=== PATIENT | female | born 1980 | race Caucasian/White ===

== ENCOUNTER 2017-05-02 16:24 | Emergency (ER) | payer OTHER ==
[~2017-05-02] VITALS: Ht 162.6 cm; Wt 52.0 kg
[~2017-05-02 16:24] MED LIST: ALBU6.7H INH; PROM6.257 PO; Z.0.NO CURRENT MEDS; ZITH250T PO
[2017-05-02 16:30] VITALS: BP 130/84; PULSE 95; RESP 16; TEMP 98.3; O2SAT 95
[2017-05-02] MEDS ORDERED: HYDR-3516 PO (17:47)
--- NOTE | 2017-05-02 17:58 | PD ---
HPI Chief Complaint: Psychiatric Symptoms Time Seen by Provider: 17:43 Travel History International Travel<30 days: No Contact w/Intl Traveler<30days: No Traveled to known affect area: No History of Present Illness HPI 36-year-old female was Aguayo acted and brought in for psychiatric evaluation. Patient was texting to her ex- and ex-boyfriend something in the context of insinuating to end it all. Aguayo act paperwork states that an empty gun case was found at the residence. Patient denies existence of a gun. Patient denies any suicidal or homicidal ideation now. Patient denies any headache. Patient denies any chest pain or shortness of breath. Patient denies abdominal pain. Patient denies any fever chills. Patient has history chronic neck pain and has been taking hydrocodone and ibuprofen as needed for pain. Patient denies any medical problems. Patient denies any illicit drugs alcohol abuse. PFSH Past Medical History Diminished Hearing: No Kidney Stones: Yes : 2 Para: 1 Miscarriage: 0 : 1 Tubal Ligation: Yes Past Surgical History Section: Yes (x1) Other Surgery: Yes (breast aug) Social History Alcohol Use: Yes (OCC) Tobacco Use: Yes (OCC) Substance Use: No Allergies-Medications (Allergen,Severity, Reaction): Coded Allergies: No Known Allergies (Verified Adverse Reaction, Unknown, 05/02/17) Reported Meds & Prescriptions Reported Meds & Active Scripts Active Reported Hydrocodone-Acetaminophen 5-325 mg Tab 1 Tab PO Q4H PRN Review of Systems General / Constitutional: No: Fever Eyes: No: Visual changes HENT: No: Headaches Cardiovascular: No: Chest Pain or Discomfort Respiratory: No: Shortness of Breath Gastrointestinal: No: Abdominal Pain Genitourinary: No: Dysuria Musculoskeletal: No: Pain Skin: No Rash Neurologic: No: Weakness Psychiatric: No: Depression Endocrine: No: Polydipsia Hematologic/Lymphatic: No: Easy Bruising Physical Exam Narrative GENERAL: Well-nourished, well-developed patient. SKIN: Focused skin assessment warm/dry. HEAD: Normocephalic. EYES: No scleral icterus. No injection or drainage. NECK: Supple, trachea midline. No JVD or lymphadenopathy. CARDIOVASCULAR: Regular rate and rhythm without murmurs, gallops, or rubs. RESPIRATORY: Breath sounds equal bilaterally. No accessory muscle use. GASTROINTESTINAL: Abdomen soft, non-tender, nondistended. MUSCULOSKELETAL: No cyanosis, or edema. BACK: Nontender without obvious deformity. No CVA tenderness. Neurologic exam normal. Data Data Last Documented VS Vital Signs Date Time Temp Pulse Resp B/P (MAP) Pulse Ox O2 Delivery O2 Flow Rate FiO2 05/02/17 16:30 98.3 95 16 130/84 (99) 95 Orders Orders Complete Blood Count With Diff (05/02/17 16:39) Comprehensive Metabolic Panel (05/02/17 16:39) Thyroid Stimulating Hormone (05/02/17 16:39) Urinalysis - C+S If Indicated (05/02/17 16:39) Psych Screen (05/02/17 16:39) Drug Screen, Random Urine (05/02/17 16:39) Alcohol (Ethanol) (05/02/17 16:39) Ed Urine Pregnancytest Poc (05/02/17 17:53) Labs Laboratory Tests Test 05/02/17 18:27 White Blood Count 11.1 TH/MM3 Red Blood Count 4.72 MIL/MM3 Hemoglobin 14.3 GM/DL Hematocrit 42.7 % Mean Corpuscular Volume 90.4 FL Mean Corpuscular Hemoglobin 30.2 PG Mean Corpuscular Hemoglobin Concent 33.4 % Red Cell Distribution Width 13.4 % Platelet Count 197 TH/MM3 Mean Platelet Volume 9.0 FL Neutrophils (%) (Auto) 63.9 % Lymphocytes (%) (Auto) 30.3 % Monocytes (%) (Auto) 5.1 % Eosinophils (%) (Auto) 0.5 % Basophils (%) (Auto) 0.2 % Neutrophils # (Auto) 7.1 TH/MM3 Lymphocytes # (Auto) 3.4 TH/MM3 Monocytes # (Auto) 0.6 TH/MM3 Eosinophils # (Auto) 0.1 TH/MM3 Basophils # (Auto) 0.0 TH/MM3 CBC Comment DIFF FINAL Differential Comment Blood Urea Nitrogen 11 MG/DL Creatinine 0.75 MG/DL Random Glucose 96 MG/DL Total Protein 7.8 GM/DL Albumin 4.3 GM/DL Calcium Level 8.6 MG/DL Alkaline Phosphatase 52 U/L Aspartate Amino Transf (AST/SGOT) 23 U/L Alanine Aminotransferase (ALT/SGPT) 23 U/L Total Bilirubin 0.3 MG/DL Sodium Level 138 MEQ/L Potassium Level 3.9 MEQ/L Chloride Level 102 MEQ/L Carbon Dioxide Level 30.7 MEQ/L Anion Gap 5 MEQ/L Estimat Glomerular Filtration Rate 87 ML/MIN Thyroid Stimulating Hormone 3rd Gen 0.994 uIU/ML Ethyl Alcohol Level LESS THAN 3 MG/DL MDM Medical Decision Making Medical Screen Exam Complete: Yes Emergency Medical Condition: Yes Interpretation(s) 22:09 PM. CBC within normal limits. CMP within normal limits. TSH normal. Alcohol less than 3. Differential Diagnosis Differential diagnosis including adjustment disorder, depression, suicidal. Narrative Course 36-year-old female was Aguayo acted and brought in for psychiatric evaluation. 22:10 PM. Patient is medically cleared for psychiatric evaluation. Mason Desai MD May 02, 2017 17:58
[2017-05-02 19:00] LABS: AUTOMATED NEUTROPHIL # 7.1 TH/MM3 (1.8-7.7); BASOPHIL % 0.2 % (0.0-2.0); EOSINOPHIL # 0.1 TH/MM3 (0-0.4); EOSINOPHIL % 0.5 % (0.0-4.0); HEMATOCRIT 42.7 % (35.0-46.0); HEMOGLOBIN 14.3 GM/DL (11.6-15.3); LYMPH % 30.3 % (9.0-44.0); LYMPHOCYTE # 3.4 TH/MM3 (1.0-4.8); MEAN CELL VOLUME 90.4 FL (80.0-100.0); MEAN CORPUSCULAR HEMOGLOBIN 30.2 PG (27.0-34.0); MEAN CORPUSCULAR HGB CONC 33.4 % (32.0-36.0); MONO % 5.1 % (0.0-8.0); MONOCYTE # 0.6 TH/MM3 (0-0.9); NEUT % 63.9 % (16.0-70.0); PLATELET COUNT 197 TH/MM3 (150-450); RED BLOOD COUNT 4.72 MIL/MM3 (4.00-5.30); RED CELL DISTRIBUTION WIDTH 13.4 % (11.6-17.2); WHITE BLOOD COUNT 11.1 TH/MM3 (4.0-11.0)
[2017-05-02 19:22] LABS: ALBUMIN 4.3 GM/DL (3.4-5.0); ALT (GPT) 23 U/L (10-53); AST (GOT) 23 U/L (15-37); BICARBONATE 30.7 MEQ/L (21.0-32.0); BLOOD UREA NITROGEN 11 MG/DL (7-18); CALCIUM 8.6 MG/DL (8.5-10.1); CHLORIDE 102 MEQ/L (98-107); CREATININE 0.75 MG/DL (0.50-1.00); GLOMERULAR FILTRATION RATE 87 ML/MIN (>89); GLUCOSE,RANDOM 96 MG/DL (74-106); SODIUM (NA) 138 MEQ/L (136-145)
[2017-05-02 19:31] LABS: ALKALINE PHOSPHATASE 52 U/L (45-117); TOTAL BILIRUBIN ADULT 0.3 MG/DL (0.2-1.0); TOTAL PROTEIN 7.8 GM/DL (6.4-8.2)
[2017-05-03 00:43] VITALS: BP 112/66; PULSE 86; RESP 16; TEMP 99.3; O2SAT 100
[2017-05-03 01:37] LABS: BACTERIA, URINE MANY /hpf; BILIRUBIN, URINE NEG (NEG); BLOOD, URINE MOD (NEG); GLUCOSE,URINE NEG (NEG); KETONE, URINE NEG (NEG); MUCUS URINE FEW /lpf (OCC); NITRITE,URINE POS (NEG); SQUAMOUS EPITHELIAL CELL URINE 3 /hpf (0-5); URINE COLOR YELLOW (YELLW/STRAW); URINE LEUKOCYTE ESTERASE TRACE (NEG)
[2017-05-03] MEDS ORDERED: MACR100C2 PO (03:35)
--- NOTE | 2017-05-03 03:35 | PD ---
Data Data Last Documented VS Vital Signs Date Time Temp Pulse Resp B/P (MAP) Pulse Ox O2 Delivery O2 Flow Rate FiO2 05/03/17 00:43 99.3 86 16 112/66 (81) 100 Room Air Orders Orders Complete Blood Count With Diff (05/02/17 16:39) Comprehensive Metabolic Panel (05/02/17 16:39) Thyroid Stimulating Hormone (05/02/17 16:39) Urinalysis - C+S If Indicated (05/02/17 16:39) Psych Screen (05/02/17 16:39) Drug Screen, Random Urine (05/02/17 16:39) Alcohol (Ethanol) (05/02/17 16:39) Ed Urine Pregnancytest Poc (05/02/17 17:53) Urine Culture (05/03/17 01:00) Nitrofurantoin Monohyd Macrocr (Macrobid (05/03/17 03:45) Diet Regular Basic (05/03/17 Breakfast) Labs Laboratory Tests Test 05/02/17 18:27 05/03/17 01:00 White Blood Count 11.1 TH/MM3 Red Blood Count 4.72 MIL/MM3 Hemoglobin 14.3 GM/DL Hematocrit 42.7 % Mean Corpuscular Volume 90.4 FL Mean Corpuscular Hemoglobin 30.2 PG Mean Corpuscular Hemoglobin Concent 33.4 % Red Cell Distribution Width 13.4 % Platelet Count 197 TH/MM3 Mean Platelet Volume 9.0 FL Neutrophils (%) (Auto) 63.9 % Lymphocytes (%) (Auto) 30.3 % Monocytes (%) (Auto) 5.1 % Eosinophils (%) (Auto) 0.5 % Basophils (%) (Auto) 0.2 % Neutrophils # (Auto) 7.1 TH/MM3 Lymphocytes # (Auto) 3.4 TH/MM3 Monocytes # (Auto) 0.6 TH/MM3 Eosinophils # (Auto) 0.1 TH/MM3 Basophils # (Auto) 0.0 TH/MM3 CBC Comment DIFF FINAL Differential Comment Blood Urea Nitrogen 11 MG/DL Creatinine 0.75 MG/DL Random Glucose 96 MG/DL Total Protein 7.8 GM/DL Albumin 4.3 GM/DL Calcium Level 8.6 MG/DL Alkaline Phosphatase 52 U/L Aspartate Amino Transf (AST/SGOT) 23 U/L Alanine Aminotransferase (ALT/SGPT) 23 U/L Total Bilirubin 0.3 MG/DL Sodium Level 138 MEQ/L Potassium Level 3.9 MEQ/L Chloride Level 102 MEQ/L Carbon Dioxide Level 30.7 MEQ/L Anion Gap 5 MEQ/L Estimat Glomerular Filtration Rate 87 ML/MIN Thyroid Stimulating Hormone 3rd Gen 0.994 uIU/ML Ethyl Alcohol Level LESS THAN 3 MG/DL Urine Color YELLOW Urine Turbidity HAZY Urine pH 7.0 Urine Specific [place] 1.038 Urine Protein TRACE mg/dL Urine Glucose (UA) NEG mg/dL Urine Ketones NEG mg/dL Urine Occult Blood MOD Urine Nitrite POS Urine Bilirubin NEG Urine Urobilinogen LESS THAN 2.0 MG/DL Urine Leukocyte Esterase TRACE Urine RBC 28 /hpf Urine WBC 3 /hpf Urine Squamous Epithelial Cells 3 /hpf Urine Bacteria MANY /hpf Urine Mucus FEW /lpf Microscopic Urinalysis Comment CULTURE INDICATED Urine Opiates Screen POS Urine Barbiturates Screen NEG Urine Amphetamines Screen POS Urine Benzodiazepines Screen NEG Urine Cocaine Screen NEG Urine Cannabinoids Screen NEG MDM Medical Record Reviewed: Yes Supervised Visit with MATT: No Narrative Course Please see previous providers notes. I was asked to evaluate this patient's urinalysis results after she has been previously cleared by Dr. Desai. Urinalysis reveals positive nitrites, moderate blood, many bacteria, consistent with urinary tract infection. Pending culture results the patient will be started on Macrobid, first dose provided here, every 12, prescription for when she is eventually discharged. Diagnosis Primary Impression: Urinary tract infection Scripts Nitrofurantoin Monohydrate Macrocrystals (Macrobid) 100 Mg Capsule 100 MG PO BID for Infection for 7 Days, #14 CAP 0 Refills Prov: Mason Desai MD 05/03/17 Nghia Donald May 03, 2017 03:34
[2017-05-03] MEDS ORDERED: NITROFURANTOIN MONOHYD MACROCR 100 MG CAP PO SCH (03:45)
[2017-05-03 06:27] VITALS: BP 135/75; PULSE 71; RESP 18; TEMP 98.6; O2SAT 100
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
--- NOTE | 2017-05-03 16:23 | PD ---
Physical Exam Date Seen by Provider: May 03, 2017 Time Seen by Provider: 16:22 Data Data Last Documented VS Vital Signs Date Time Temp Pulse Resp B/P (MAP) Pulse Ox O2 Delivery O2 Flow Rate FiO2 05/03/17 06:27 98.6 71 18 135/75 (95) 100 Room Air Orders Orders Complete Blood Count With Diff (05/02/17 16:39) Comprehensive Metabolic Panel (05/02/17 16:39) Thyroid Stimulating Hormone (05/02/17 16:39) Urinalysis - C+S If Indicated (05/02/17 16:39) Psych Screen (05/02/17 16:39) Drug Screen, Random Urine (05/02/17 16:39) Alcohol (Ethanol) (05/02/17 16:39) Ed Urine Pregnancytest Poc (05/02/17 17:53) Urine Culture (05/03/17 01:00) Nitrofurantoin Monohyd Macrocr (Macrobid (05/03/17 03:45) Diet Regular Basic (05/03/17 Breakfast) Diet Regular Basic (05/03/17 Lunch) Ed Discharge Order (05/03/17 16:20) Labs Laboratory Tests Test 05/02/17 18:27 05/03/17 01:00 White Blood Count 11.1 TH/MM3 Red Blood Count 4.72 MIL/MM3 Hemoglobin 14.3 GM/DL Hematocrit 42.7 % Mean Corpuscular Volume 90.4 FL Mean Corpuscular Hemoglobin 30.2 PG Mean Corpuscular Hemoglobin Concent 33.4 % Red Cell Distribution Width 13.4 % Platelet Count 197 TH/MM3 Mean Platelet Volume 9.0 FL Neutrophils (%) (Auto) 63.9 % Lymphocytes (%) (Auto) 30.3 % Monocytes (%) (Auto) 5.1 % Eosinophils (%) (Auto) 0.5 % Basophils (%) (Auto) 0.2 % Neutrophils # (Auto) 7.1 TH/MM3 Lymphocytes # (Auto) 3.4 TH/MM3 Monocytes # (Auto) 0.6 TH/MM3 Eosinophils # (Auto) 0.1 TH/MM3 Basophils # (Auto) 0.0 TH/MM3 CBC Comment DIFF FINAL Differential Comment Blood Urea Nitrogen 11 MG/DL Creatinine 0.75 MG/DL Random Glucose 96 MG/DL Total Protein 7.8 GM/DL Albumin 4.3 GM/DL Calcium Level 8.6 MG/DL Alkaline Phosphatase 52 U/L Aspartate Amino Transf (AST/SGOT) 23 U/L Alanine Aminotransferase (ALT/SGPT) 23 U/L Total Bilirubin 0.3 MG/DL Sodium Level 138 MEQ/L Potassium Level 3.9 MEQ/L Chloride Level 102 MEQ/L Carbon Dioxide Level 30.7 MEQ/L Anion Gap 5 MEQ/L Estimat Glomerular Filtration Rate 87 ML/MIN Thyroid Stimulating Hormone 3rd Gen 0.994 uIU/ML Ethyl Alcohol Level LESS THAN 3 MG/DL Urine Color YELLOW Urine Turbidity HAZY Urine pH 7.0 Urine Specific [place] 1.038 Urine Protein TRACE mg/dL Urine Glucose (UA) NEG mg/dL Urine Ketones NEG mg/dL Urine Occult Blood MOD Urine Nitrite POS Urine Bilirubin NEG Urine Urobilinogen LESS THAN 2.0 MG/DL Urine Leukocyte Esterase TRACE Urine RBC 28 /hpf Urine WBC 3 /hpf Urine Squamous Epithelial Cells 3 /hpf Urine Bacteria MANY /hpf Urine Mucus FEW /lpf Microscopic Urinalysis Comment CULTURE INDICATED Urine Opiates Screen POS Urine Barbiturates Screen NEG Urine Amphetamines Screen POS Urine Benzodiazepines Screen NEG Urine Cocaine Screen NEG Urine Cannabinoids Screen NEG MDM Medical Record Reviewed: Yes Supervised Visit with MATT: No Narrative Course 36-year-old female presented to the emergency room yesterday under a Aguayo act after supposedly making suicidal statements. Patient states she never made suicidal statements and denies suicidal ideation at this time. She is anxious to leave. Smiling, interacting appropriately. Labs reviewed and unremarkable. Patient has urinary tract infection for which she will be discharged with prescription for Macrobid. Told to follow-up with a primary care physician or return for worsening symptoms. She understands and agrees to plan. Diagnosis Primary Impression: Urinary tract infection Qualified Codes: N30.01 - Acute cystitis with hematuria Additional Impression: Adjustment disorder Referrals: Primary Care Physician Additional Instruction: Macrobid as directed, until gone. Follow-up with a primary care physician. Return to the emergency room for worsening symptoms. Scripts Nitrofurantoin Monohydrate Macrocrystals (Macrobid) 100 Mg Capsule 100 MG PO BID for Infection for 7 Days, #14 CAP 0 Refills Prov: Mason Desai MD 05/03/17 Disposition: 01 DISCHARGE HOME Condition: Stable Sharron Love May 03, 2017 16:23
== END 2017-05-03 17:27 | disposition home or self-care (01) ==
LOC: NEDAMB 16:24 → NEPJ 05-03 17:27
DX: F43.25 Adjustment disorder with mixed disturbance of emotions and conduct (principal); N30.01 Acute cystitis with hematuria
CPT/HCPCS: 80053; 80307; 81001; 84443; 84703; 85025; 87077; 87086; 87186; 99283